=== PATIENT | female | born 1965 | race Hispanic/Latino ===

== ENCOUNTER → 2023-06-12 15:00 | Outpatient (CLI) | payer SELFPAY | PROVIDERS: Referring Provider Family Medicine; Visit Provider Family Medicine | DX: Z23 Encounter for immunization (principal) | CPT/HCPCS: 90471; 90686 ==

== ENCOUNTER → 2023-12-03 15:36 | Outpatient (CLI) | payer OTHER, SELFPAY ==
[2023-12-03 16:55] LABS: Cholesterol 204 mg/dL (140-199); HDL Cholesterol 52 mg/dL (40-60); LDL Cholesterol Calculated 125 mg/dL (<100); Triglycerides 135 mg/dL (35-150)
== END ==
PROVIDERS: PCP Nurse Practitioner Family; Referring Provider Nurse Practitioner Family; Visit Provider Nurse Practitioner Family
DX: Z13.220 Encounter for screening for lipoid disorders (principal); Z13.1 Encounter for screening for diabetes mellitus; R03.0 Elevated blood-pressure reading, without diagnosis of hypertension
CPT/HCPCS: 36415; 80061; 83036; 84443

== ENCOUNTER → 2023-12-22 13:40 | Outpatient (CLI) | payer OTHER, SELFPAY | LOC: CAR 13:41 | PROVIDERS: PCP Nurse Practitioner Family; Referring Provider Nurse Practitioner Family; Visit Provider Nurse Practitioner Family | DX: R07.9 Chest pain, unspecified (principal) | CPT/HCPCS: 93246 ==

== ENCOUNTER → 2024-03-24 17:25 | Outpatient (CLI) | payer OTHER, SELFPAY ==
--- NOTE | 2024-03-24 17:26 | DI.MG.S_ITS ---
BILATERAL DIGITAL SCREENING MAMMOGRAM 3D/2D WITH CAD: 03/24/2024 CLINICAL: Baseline exam. Routine screening. No prior exams were available for comparison. There are scattered areas of fibroglandular density in both breasts (category b / 25%-50% glandular tissue). Current study was also evaluated with a Computer Aided Detection (CAD) system. No significant masses, calcifications, or other findings are seen in either breast. IMPRESSION: NEGATIVE There is no mammographic evidence of malignancy. A 1 year screening mammogram is recommended. Based on the Tyrer Cuzick model (a risk assessment model) the patient's lifetime risk is 6.0% and her 10 year risk is 2.1%. According to the ACR, ACS, and NCCN guidelines, an annual breast MRI exam along with mammogram is recommended if the patient's lifetime risk is 20% or greater. This exam was interpreted at Station ID: [id number]. NOTE: For mammograms, a report in lay terms will be sent to the patient. Approximately 15% of breast malignancies will not be visualized mammographically. In the management of a palpable breast mass, a negative mammogram must not discourage biopsy of a clinically suspicious lesion. Electronically Signed By: Gabriel [email or web address]:03/25/2024 13:05:45 letter sent: Normal Exam ACR BI-RADS Category 1: Negative 3341F
== END ==
PROVIDERS: PCP Nurse Practitioner Family; Referring Provider Nurse Practitioner Family; Visit Provider Nurse Practitioner Family
DX: Z12.31 Encounter for screening mammogram for malignant neoplasm of breast (principal); R92.323 Mammographic fibroglandular density, bilateral breasts
CPT/HCPCS: 77063; 77067

== ENCOUNTER → 2024-06-11 17:56 | Outpatient (CLI) | payer OTHER, SELFPAY | PROVIDERS: PCP Nurse Practitioner Family; Referring Provider Internal Medicine; Visit Provider Internal Medicine | DX: Z23 Encounter for immunization (principal) | CPT/HCPCS: 90471; 90656 ==

== ENCOUNTER 2024-06-20 09:52 | Emergency (ER) | payer OTHER, SELFPAY ==
[2024-06-20 09:58] VITALS: BP 135/79; PULSE 65; RESP 18; TEMP 36.3; O2SAT 96; BMI 30.2
--- NOTE | 2024-06-20 11:36 | ED.WOUNDLAC ---
HPI - Wound/Laceration <Ana Lilia Desai PA-C - Last Filed: 06/20/24 19:21> General Chief Complaint: Wound/Laceration Stated Complaint: cut thumb onleft hand Time Seen by Provider: 06/20/24 11:30 Source: patient Mode of arrival: Family Vehicle History of Present Illness HPI narrative: Pleasant 59-year-old female with a past medical history of hypertension who presents to the emergency department for a laceration to her left thumb that occurred yesterday. 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 She did not come to the emergency room yesterday because she did not have time. She kept the wound covered with a bandage. Reports minimal bleeding continuing this morning. Unsure of her last tetanus shot. No blood thinner use. Denies fevers, chills, decreased range of motion of the left thumb, purulent drainage, spreading erythema or other concerns. Related Data Allergies Allergy/AdvReac Type Severity Reaction Status Date / Time No Known Drug Allergies Allergy Verified 06/20/24 10:04 Review of Systems <Ana Lilia Desai PA-C - Last Filed: 06/20/24 19:21> Review of Systems ROS Unobtainable: All systems reviewed & are unremarkable except as noted in HPI and below Patient History <Ana Lilia Desai PA-C - Last Filed: 06/20/24 19:21> Medical History High blood pressure Social History Smoking Status: Never smoker Smoking Status: Never smoker alcohol intake frequency: 0-2 drinks per day Substance Use Type: does not use Exam <Ana Lilia Desai PA-C - Last Filed: 06/20/24 19:21> Narrative Exam Narrative: GENERAL: 59 year old patient appears stated age. Well-developed patient, in no acute distress. HEAD: Atraumatic. Normocephalic. CARDIOVASCULAR: Regular rate RESPIRATORY: Speaking in clear, full sentences. Nonlabored breathing. EXTREMITIES: No edema or joint tenderness. Full ROM left hand and including thumb. BACK: Nontender without deformity or crepitance. No flank tenderness. NEURO: AOx3. SKIN: Superficial 1.5 cm laceration on palmar aspect of left thumb base. No active bleeding. No surrounding erythema. Initial Vital Signs Initial Vital Signs: Vital Signs Temperature 97.3 F L 06/20/24 09:58 Pulse Rate 65 06/20/24 09:58 Respiratory Rate 18 06/20/24 09:58 Blood Pressure 135/79 06/20/24 09:58 Pulse Oximetry 96 06/20/24 09:58 Oxygen Delivery Method Room Air 06/20/24 09:58 <Anastasia Dumont DO - Last Filed: 06/24/24 08:20> Initial Vital Signs Initial Vital Signs: Vital Signs Temperature 97.3 F L 06/20/24 09:58 Pulse Rate 65 06/20/24 09:58 Respiratory Rate 18 06/20/24 09:58 Blood Pressure 135/79 06/20/24 09:58 Pulse Oximetry 96 06/20/24 09:58 Oxygen Delivery Method Room Air 06/20/24 09:58 Course <Ana Lilia Desai PA-C - Last Filed: 06/20/24 19:21> Orders Ordered: Discontinued Medications Diphtheria/Tetanus/Acell Pertussis (Tet,Diph,Pertuss(Acell),Vac/Pf 0.5 Ml Syringe) 0.5 ml IM .ONCE ONE Stop: 06/20/24 10:59 Last Admin: 06/20/24 11:40 Dose: 0.5 ml Documented By: EDGARD Vital Signs Vital signs: Vital Signs - 8 hr 06/20/24 11:54 Pulse Rate 66 Respiratory Rate 17 Blood Pressure 133/77 Pulse Oximetry 97 Oxygen Delivery Method Room Air <Anastasia Dumont DO - Last Filed: 06/24/24 08:20> Orders Ordered: Discontinued Medications Diphtheria/Tetanus/Acell Pertussis (Tet,Diph,Pertuss(Acell),Vac/Pf 0.5 Ml Syringe) 0.5 ml IM .ONCE ONE Stop: 06/20/24 10:59 Last Admin: 06/20/24 11:40 Dose: 0.5 ml Documented By: EDGARD Vital Signs Vital signs: Vital Signs - 8 hr 06/20/24 11:54 Pulse Rate 66 Respiratory Rate 17 Blood Pressure 133/77 Pulse Oximetry 97 Oxygen Delivery Method Room Air MDM - Wound/Laceration <Ana Lilia Desai PA-C - Last Filed: 06/20/24 19:21> MDM Narrative Medical decision making narrative: 59-year-old female with a past medical history of hypertension presents to the emergency department for a laceration to her left thumb that occurred yesterday. Differential diagnosis includes but is not limited to laceration, abrasion, infection, etc.. On exam patient is in no acute distress, nontoxic appearing, vital signs within normal limits. She has an approximately 1.5 cm superficial laceration on the palmar aspect of the left thumb. Laceration occurred over 24 hours ago therefore we will allow to heal by secondary intention. Wound was cleansed and sterile dressing applied. TDap updated. Will treat patient empirically with Keflex to prevent infection given lac >24 hours and from dirty kitchen knife. Discussed proper wound care and signs and symptoms to return to the emergency department for. Advised follow up with PCP. Patient is stable for discharge and agreeable to plan. Discharge Plan Departure Patient Disposition: Home Clinical Impression: Laceration, Pain of left thumb Instructions: DI for Minor Laceration Activity Restrictions/Additional Instructions: Today you were evaluated for a laceration of your thumb. Please keep the wound clean, dry, covered. Complete the course of antibiotics to prevent wound infection. Return to the emergency department immediately if you develop increased redness, pain, swelling of the left thumb or fevers or redness streaking up the hand or arm. You may take 1000 mg of Tylenol or 600 mg of ibuprofen every 6 hours if needed for pain. Referrals: Chichi Iglesias, [employer] [Primary Care Provider] - Stand Alone Forms: Patient Portal/API/Survey ED Sign-out <Anastasia Dumont DO - Last Filed: 06/24/24 08:20> Cosign ED Attending Susanna Attestation: I was available for consultation.
[2024-06-20] MEDS: TET,DIPH,PERTUSS(ACELL),VAC/PF 0.5 ML SYRINGE IM (11:40)
[2024-06-20 11:54] VITALS: BP 133/77; PULSE 66; RESP 17; O2SAT 97
== END 2024-06-20 11:58 | disposition home or self-care (01) ==
PROVIDERS: Emergency Provider Physician Assistant; PCP Nurse Practitioner Family
DX: S61.012A Laceration without foreign body of left thumb without damage to nail, initial encounter (principal); W26.0XXA Contact with knife, initial encounter; Z23 Encounter for immunization
CPT/HCPCS: 90471; 99283; 90715